=== PATIENT | male | born 1985 | race Caucasian/White ===

== ENCOUNTER 2021-02-14 17:48 | Emergency (ER) | payer SELFPAY ==
[~2021-02-14] VITALS: Ht 175.3 cm; Wt 97.7 kg
[2021-02-14 17:51] VITALS: Ht 175.3 cm; Wt 97.7 kg
[2021-02-14] MEDS ORDERED: CLEOCIN HCL300 MG PO (19:57)
[2021-02-14] MEDS ORDERED: HYDROCODON-ACE1 EAC7 PO (19:57)
[2021-02-14 20:58] VITALS: BP 152/83
== END 2021-02-14 20:58 | disposition home or self-care (01) ==
LOC: D.ER 17:48
DX: S81.012A Laceration without foreign body, left knee, initial encounter (principal); X58.XXXA Exposure to other specified factors, initial encounter